=== PATIENT | male | born 1975 | race Caucasian/White ===

== ENCOUNTER 2025-01-08 09:45 | Emergency (ER) | payer OTHER, SELFPAY ==
[2025-01-08 09:59] VITALS: BP 188/105; PULSE 92; RESP 16; TEMP 36.4; O2SAT 98
--- NOTE | 2025-01-08 10:48 | ED.EAR ---
HPI - Ear Problem General Chief complaint: Ear Stated complaint: Ear Pain Time Seen by Provider: 01/08/25 10:32 Source: patient and RN notes reviewed Mode of arrival: ambulatory Limitations: no limitations History of Present Illness HPI Narrative: Patient presents today complaining of left ear pain intermittently x5 days with muffled hearing. Denies drainage. He has been using Flonase without improvement. Currently rates his pain 2/10. Denies any additional upper respiratory symptoms. Related Data Allergies Allergy/AdvReac Type Severity Reaction Status Date / Time No Known Allergies Allergy Verified 01/08/25 09:58 [facility] Family History Family History Sibling Hypertension Social History Social History Smoking status: Never smoker Alcohol intake: never Comments At time of signature, I have reviewed and agree with nursing past medical, surgical, social and family history unless otherwise noted. Please see nursing chart for further information. There is no relevant family history pertinent to the presenting complaint Exam Narrative: GENERAL: Well-appearing, well-nourished, and in no acute distress. HEAD: Normocephalic, atraumatic. EYES: EOMI. No redness or drainage. Conjunctivae normal. ENT: Mucous membranes pink and moist. Nares clear. No rhinorrhea. Right TM and canal normal. Left ear: No movement or tragal tenderness. TM occluded as ear canal is completely swollen shut and erythematous. No obvious drainage noted. Very painful with placement of ear probe. NECK: Normal AROM. Supple. No lymphadenopathy. CHEST: No respiratory distress. EXTREMITIES: Normal range of motion. No edema. SKIN: Warm, dry, no rash. Capillary refill normal. Normal skin turgor. NEURO: No focal deficits. Alert and oriented x3. Gait steady. PSYCH: Normal affect. No signs of depression or anxiety. Course Course Level of Care: Express Care Visit Vital Signs Vital signs: Vital Signs Temperature 97.6 F 01/08/25 09:59 Pulse Rate 92 01/08/25 09:59 Respiratory Rate 16 01/08/25 09:59 Blood Pressure 188/105 H 01/08/25 09:59 Pulse Oximetry 98 01/08/25 09:59 Temperature 97.6 F 01/08/25 09:59 Pulse Rate 92 01/08/25 09:59 Respiratory Rate 16 01/08/25 09:59 Blood Pressure 188/105 H 01/08/25 09:59 Pulse Oximetry 98 01/08/25 09:59 Reviewed. Repeat BP 160/107. Procedures Other Procedure Procedure 1: Other Procedure: Ear wick placed in left ear canal and expanded with 2 drops of saline. Patient tolerated procedure well. Medical Decision Making MDM Narrative Medical decision making narrative: 49-year-old male presents with 5 day history of left ear pain, muffled hearing without any additional URI symptoms or drainage. OTC Flonase without improvement. Upon exam, left ear canal is swollen shut. Ear wick placed successfully. Prescription for Ciprodex sent to pharmacy for left otitis externa. VSS, but BP elevated. Repeat BP 160/107. Anticipatory guidance given. Differential Diagnosis Differential Diagnosis: Otitis media, otitis externa, ruptured TM, serous otitis, cerumen infection Vital Signs Vital Signs: Vital Signs Temperature 97.6 F 01/08/25 09:59 Pulse Rate 92 01/08/25 09:59 Respiratory Rate 16 01/08/25 09:59 Blood Pressure 188/105 H 01/08/25 09:59 Pulse Oximetry 98 01/08/25 09:59 Temperature 97.6 F 01/08/25 09:59 Pulse Rate 92 01/08/25 09:59 Respiratory Rate 16 01/08/25 09:59 Blood Pressure 188/105 H 01/08/25 09:59 Pulse Oximetry 98 01/08/25 09:59 Critical Care Time Critical Care Time Critical Care Time: No Discharge Plan Discharge Clinical Impression: Left otitis externa Qualifiers: Otitis externa type: unspecified type Chronicity: acute Qualified Code(s): H60.502 - Unspecified acute noninfective otitis externa, left ear Patient Disposition: Home Condition: Stable Instructions: Swimmer's Ear (ED) Additional Instructions: You have been diagnosed with an infection in your left ear canal. A wick has been placed to facilitate the ear drops moving and your ear canal. This wick will fall out on its own once the ear canal is no longer swollen closed. Take Tylenol or ibuprofen at home for pain, if able. Follow-up with your PCP in 3 days if symptoms are not improving, or sooner if symptoms worsen. Your blood pressure was elevated above 120/80 today at Urgent Care. This puts you above the threshold for follow up. Please schedule a followup visit with your personal physician as soon as possible, for further evaluation and treatment. Even blood pressure exceeding 120/80 may indicate pre-hypertension. Patient Language: Camb[place]ian Prescriptions: New ciprofloxacin-dexamethasone 0.3-0.1 % drops,suspension 4 drp LEFT EAR Q12H 7 Days Qty: 7.5 0RF Follow-up/Referrals: PHYSICIAN,DENTAL AIDE [Primary Care Provider] - Time of Disposition: 10:47
== END 2025-01-08 10:54 | disposition home or self-care (01) ==
PROVIDERS: Emergency Provider Nurse Practitioner
DX: H60.502 Unspecified acute noninfective otitis externa, left ear (principal)
CPT/HCPCS: 99203; G0463